=== PATIENT | female | born 1995 | race Caucasian/White ===

== ENCOUNTER 2017-05-21 15:50 | Outpatient (CLI) | payer OTHER ==
[~2017-05-21] VITALS: Ht 160 cm; Wt 104.0 kg
[2017-05-21 16:17] VITALS: BP 134/84
[2017-05-21] MEDS ORDERED: PRENATAL TABLE1 EACH PO (16:38)
[2017-05-21] MEDS ORDERED: TUMS X-STR300 MG PO (16:39)
[2017-05-21 16:58] VITALS: BP 124/68
[2017-05-21 16:58] LABS: EOSINOPHIL (%) 0.7 % (0-5); EOSINOPHIL COUNT 0.1 K/uL (0-0.3); IMMATURE GRANULOCYTE (%) 1.4 % (0.0-0.7); IMMATURE GRANULOCYTE COUNT 0.2 K/uL; INSTRUMENT ABS NEUTROPHIL CT 9.5 K/uL; LYMPHOCYTE COUNT 1.6 K/uL (1.0-2.8); MCH 30.1 PG (29.0-34.0); MCHC 33.9 G/DL (30.0-36.0); MCV 88.6 FL (83-99); MEAN PLAT.VOLUME 10.9 uM^3 (9.5-12.4); MONOCYTE (%) 5.7 % (3-12); MONOCYTE COUNT 0.7 K/uL (0-0.8); NEUTROPHIL (%) 78.4 % (45-76); NEUTROPHIL COUNT 9.5 K/uL (1.8-6.4); PLATELET COUNT 276 K/uL (156-360); RBC DIS.WIDTH-SD 41.7 % (39-53); RED BLOOD COUNT 4.29 M/uL (3.80-5.20); WHITE BLOOD COUNT 12.1 K/uL (4.1-10.2)
[2017-05-21 17:07] LABS: ANION GAP 8 MEQ/L (2-14); CHLORIDE 105 MEQ/L (99-109); POTASSIUM 4.2 MEQ/L (3.7-5.4); SAMPLE HEMOLYSIS CHECK 0; SAMPLE ICTERIC CHECK 0; SAMPLE LIPEMIA CHECK 0; SODIUM 135 MEQ/L (136-147); TOTAL BILIRUBIN 0.3 MG/DL (0.0-1.0)
[2017-05-21 17:13] LABS: ALKALINE PHOSPHATASE 155 IU/L (3-129); GFR ESTIMATE (CALCULATED) > 59 mL/min/; GLUCOSE 74 mg/dL (70-99); LACTATE DEHYDROGENASE 153 IU/L (20-246); UREA NITROGEN (BUN) 9 mg/dL (9-23); URIC ACID 3.3 mg/dL (3.1-9.2)
[2017-05-21 17:18] LABS: UR CREATININE CONCENTRATION 100.4 MG/DL
[2017-05-21 17:27] VITALS: BP 122/60
== END 2017-05-21 18:15 | disposition home or self-care (01) ==
LOC: LDRP-OP 15:50 → 2WEST 15:52 → LDRP-OP 06-15 12:55
PROVIDERS: Advanced Practice Midwife
DX: O16.3 Unspecified maternal hypertension, third trimester (principal); Z3A.40 40 weeks gestation of pregnancy
CPT/HCPCS: 59025; 80053; 82570; 83615; 84156; 84550; 85025; G0378

== ENCOUNTER 2017-05-23 15:35 | Inpatient (IN) | payer OTHER ==
[2017-05-23] VITALS (14 sets, daily range): BP systolic 124–162; BP diastolic 73–95
[~2017-05-23] VITALS: Ht 160 cm; Wt 103.0 kg
[~2017-05-23 15:35] MED LIST: PRENATAL TABLE1 EACH PO; TUMS X-STR300 MG PO
[2017-05-23 16:31] LABS: EOSINOPHIL (%) 0.6 % (0-5); EOSINOPHIL COUNT 0.1 K/uL (0-0.3); HEMATOCRIT 38.3 % (36.0-46.0); IMMATURE GRANULOCYTE (%) 1.5 % (0.0-0.7); IMMATURE GRANULOCYTE COUNT 0.2 K/uL; INSTRUMENT ABS NEUTROPHIL CT 10.7 K/uL; LYMPHOCYTE COUNT 1.6 K/uL (1.0-2.8); MCH 31.3 PG (29.0-34.0); MCHC 35.2 G/DL (30.0-36.0); MCV 88.9 FL (83-99); MEAN PLAT.VOLUME 11.1 uM^3 (9.5-12.4); MONOCYTE (%) 5.3 % (3-12); MONOCYTE COUNT 0.7 K/uL (0-0.8); NEUTROPHIL (%) 80.4 % (45-76); NEUTROPHIL COUNT 10.7 K/uL (1.8-6.4); PLATELET COUNT 290 K/uL (156-360); RBC DIS.WIDTH-CV 12.9 % (11.8-14.6); RBC DIS.WIDTH-SD 42.1 % (39-53); RED BLOOD COUNT 4.31 M/uL (3.80-5.20); WHITE BLOOD COUNT 13.3 K/uL (4.1-10.2)
[2017-05-23 16:47] LABS: ALKALINE PHOSPHATASE 175 IU/L (3-129); ANION GAP 10 MEQ/L (2-14); CHLORIDE 106 MEQ/L (99-109); GFR ESTIMATE (CALCULATED) > 59 mL/min/; GLUCOSE 80 mg/dL (70-99); LACTATE DEHYDROGENASE 168 IU/L (20-246); POTASSIUM 4.1 MEQ/L (3.7-5.4); SAMPLE HEMOLYSIS CHECK 0; SAMPLE ICTERIC CHECK 0; SAMPLE LIPEMIA CHECK 0; SODIUM 136 MEQ/L (136-147); TOTAL BILIRUBIN 0.3 MG/DL (0.0-1.0); UREA NITROGEN (BUN) 11 mg/dL (9-23); URIC ACID 3.9 mg/dL (3.1-9.2)
[2017-05-23 17:04] LABS: UR CREATININE CONCENTRATION 162.6 MG/DL
[2017-05-23 18:43] LABS: AMPHETAMINES QUANT VALUE 0 NG/ML; BARBITUATES QUANT VALUE 0 NG/ML; BENZODIAZEPINES QUANT VALUE 0 NG/ML; BENZODIAZEPINES, URINE SCREEN Negative (200 ng/mL); MARIJUANA QUANT VALUE 0 NG/ML; OPIATES QUANTITATIVE VALUE 0 NG/ML; PHENCYCLIDINE QUANT VALUE 0 NG/ML
[2017-05-24] VITALS (18 sets, daily range): BP systolic 106–145; BP diastolic 54–96
[2017-05-25 06:04] LABS: EOSINOPHIL (%) 0.1 % (0-5); HEMATOCRIT 27.2 % (36.0-46.0); IMMATURE GRANULOCYTE (%) 0.9 % (0.0-0.7); IMMATURE GRANULOCYTE COUNT 0.1 K/uL; LYMPHOCYTE COUNT 1.3 K/uL (1.0-2.8); MCH 29.9 PG (29.0-34.0); MCHC 33.1 G/DL (30.0-36.0); MCV 90.4 FL (83-99); MEAN PLAT.VOLUME 11.2 uM^3 (9.5-12.4); MONOCYTE (%) 6.2 % (3-12); MONOCYTE COUNT 0.8 K/uL (0-0.8); NEUTROPHIL (%) 82.6 % (45-76); PLATELET COUNT 226 K/uL (156-360); RBC DIS.WIDTH-SD 42.1 % (39-53); WHITE BLOOD COUNT 13.3 K/uL (4.1-10.2)
[2017-05-25 06:09] LABS: RED BLOOD COUNT 3.01 M/uL (3.80-5.20)
[2017-05-25 11:31] VITALS: BP 117/58
[2017-05-25 16:29] VITALS: BP 125/65
[2017-05-25 19:19] VITALS: BP 123/57
[2017-05-25 23:17] VITALS: BP 130/68
[2017-05-26 02:37] VITALS: BP 128/56
[2017-05-26 07:35] VITALS: BP 131/72
[2017-05-26 11:37] VITALS: BP 128/67
[2017-05-26 15:20] VITALS: BP 137/75
[2017-05-26 19:00] VITALS: BP 136/71
[2017-05-26 23:00] VITALS: BP 129/70
[2017-05-27 03:00] VITALS: BP 121/66
[2017-05-27 08:16] VITALS: BP 131/71
[2017-05-27 15:00] VITALS: BP 133/88
[2017-05-28 07:08] VITALS: BP 137/98
[2017-05-28] MEDS ORDERED: ENDOCET 5-3251 EACH PO (09:35)
[2017-05-28] MEDS ORDERED: DOCUSATE SODIU100 MG PO (09:35)
[2017-05-28] MEDS ORDERED: FERROUS SULFAT325 MG PO (09:35)
[2017-05-28] MEDS ORDERED: IBUPROFEN800 MG PO (09:35)
== END 2017-05-28 14:05 | disposition home or self-care (01) | DRG 765 ==
LOC: LDRP-OP 15:35 → 2WEST 15:36 → LDRP-OP 06-15 21:35
PROVIDERS: Advanced Practice Midwife; Obstetrics & Gynecology
PROC: 10D00Z1 Extraction of Products of Conception, Low, Open Approach (ICD-10-PCS; principal; 2017-05-24)
DX: O13.4 Gestational [pregnancy-induced] hypertension without significant proteinuria, complicating childbirth (principal); O48.0 Post-term pregnancy; O15.1 Eclampsia complicating labor; O99.214 Obesity complicating childbirth; D62 Acute posthemorrhagic anemia; O62.0 Primary inadequate contractions; O14.94 Unspecified pre-eclampsia, complicating childbirth; O33.9 Maternal care for disproportion, unspecified; E66.9 Obesity, unspecified; O99.02 Anemia complicating childbirth; O62.1 Secondary uterine inertia; Z3A.41 41 weeks gestation of pregnancy; Z37.0 Single live birth; Z82.5 Family history of asthma and other chronic lower respiratory diseases; Z82.49 Family history of ischemic heart disease and other diseases of the circulatory system
CPT/HCPCS: 59025; 80053; 80306 90; 82570; 83615; 84156; 84550; 85025; 86850; 86900; 86901; 88307; G0378; J0595; J0690; J1100; J1885; J2274; J2405; J3010; J7120